=== PATIENT | female | born 1980 | race Caucasian/White ===

== ENCOUNTER 2018-09-01 16:24 | Emergency (ER) | payer OTHER ==
[2018-09-01] MEDS ORDERED: SODIUM CHLORIDE 0.9% 1,000 ML IV ONE ×2 (17:29)
[2018-09-01 18:10] LABS: Basophils # (A) 0.1 k/uL (0-0.2); Basophils % (A) 1 %; Eosinophils # (A) 0.2 k/uL (0-0.7); Eosinophils % (A) 2 %; HCT 40.1 % (34.0-46.0); HGB 13.3 gm/dL (11.4-16.0); Lymphocytes # (A) 3.3 k/uL (1.0-4.8); Lymphocytes % (A) 30 %; MCHC 33.1 g/dL (31.0-37.0); MCV 90.7 fL (80.0-100.0); Mean Platelet Volume 7.1; Monocytes # (A) 0.4 k/uL (0-1.0); Monocytes % (A) 3 %; Neutrophils # (A) 6.8 k/uL (1.3-7.7); Neutrophils % (A) 62 %; Platelet Count 286 k/uL (150-450); RBC 4.43 m/uL (3.80-5.40); RDW 15.3 % (11.5-15.5)
[2018-09-01 18:38] LABS: INR 0.8 (<1.2); Partial Thromboplastin Time 23.5 sec (22.0-30.0); Prothrombin Time 9.4 sec (9.0-12.0)
--- NOTE | 2018-09-01 18:47 | US ---
EXAMINATION TYPE: Transabdominal DATE OF EXAM: 10/08/17 COMPARISON: NONE CLINICAL HISTORY: Pain. Spotting and cramping. EXAM PERFORMED: Transabdominal (TA) EXAM MEASUREMENTS: GESTATIONAL AGE / DATING Physician Established: Not yet established Dates by LMP: (14 weeks/4 days) EDC: 02/26/2019 Dates by First Scan: No previous this is first scan Dates by Current Scan for: (13 weeks/6 days) EDC: 03/03/2019 MATERNAL ANATOMY Uterus: 17.8 x 8.7 x 9.5 cm Post CDS / Adnexa: wnl Presence of free fluid: no Presence of corpus luteal cyst: no Presence of subchorionic bleed: no GESTATION / SURVEY CRL: 7.8cm (13 weeks/6 days) Heart Rate: 151 bpm Rhythm: Normal IUP: Viable IUP Beta HcG (if available): Not available at this time IMPRESSION: Single living intrauterine fetus with gestational age of 13 weeks 6 days according to the crown-rump length. Limited exam due to patient size.
--- NOTE | 2018-09-01 19:00 | ED ---
Female Urogenital HPI - General Chief complaint: Vaginal Bleeding Stated complaint: 14 weeks pg/spotting/cramping Time Seen by Provider: 09/01/18 17:29 Source: patient, RN notes reviewed, old records reviewed Mode of arrival: ambulatory Limitations: no limitations - History of Present Illness Initial comments: Patient is a 37-year-old female, , currently 14 weeks of last menstrual period. She presents emergency Department today with complaints of lower abdominal cramping. She's had some intermittent spotting. Patient states that she has not seen [facility] [employer] [facility] at this time and she has a high risk . Patient has had no nausea or vomiting. Normal urination and bowel habits. Patient states that she has not had any ultrasounds or testing for this . She states that she is a high-risk due to history of strokes as well as her age. Last Menstrual Period: 05/22/18 - Related Data Home Medications Medication Instructions Recorded Confirmed [id number] Acid 1 tab PO DAILY 09/01/18 09/01/18 [-U Capsule (formulary)] Allergies Allergy/AdvReac Type Severity Reaction Status Date / Time amoxicillin Allergy Anaphylaxis Verified 09/01/18 17:44 Penicillins Allergy Anaphylaxis Verified 09/01/18 17:44 Review of Systems ROS Statement: Those systems with pertinent positive or pertinent negative responses have been documented in the HPI. ROS Other: All systems not noted in ROS Statement are negative. Past Medical History Past Medical History: CVA/TIA History of Any Multi-Drug Resistant Organisms: None Reported Past Surgical History: No Surgical Hx Reported Past Psychological History: No Psychological Hx Reported, Anxiety Smoking Status: Current every day smoker Past Alcohol Use History: None Reported Past Drug Use History: None Reported General Exam - General Exam Comments Initial Comments: Alert and oriented 37-year-old male. No significant distress. Limitations: no limitations General appearance: alert, in no apparent distress Head exam: Present: atraumatic, normocephalic, normal inspection Eye exam: Present: normal appearance, PERRL, EOMI. Absent: scleral icterus, conjunctival injection, periorbital swelling ENT exam: Present: normal exam, mucous membranes moist Neck exam: Present: normal inspection. Absent: tenderness, meningismus, lymphadenopathy Respiratory exam: Present: normal lung sounds bilaterally. Absent: respiratory distress, wheezes, rales, rhonchi, stridor Cardiovascular Exam: Present: regular rate, normal rhythm, normal heart sounds. Absent: systolic murmur, diastolic murmur, rubs, gallop, clicks GI/Abdominal exam: Present: soft, normal bowel sounds. Absent: distended, tenderness, guarding, rebound, rigid Extremities exam: Present: normal inspection, full ROM, normal capillary refill. Absent: tenderness, pedal edema, joint swelling, calf tenderness Back exam: Present: normal inspection Neurological exam: Present: alert, oriented X3, CN II-XII intact Psychiatric exam: Present: normal affect, normal mood Skin exam: Present: warm, dry, intact, normal color. Absent: rash Course Vital Signs 09/01/18 17:03 Temperature 98.5 F Pulse Rate 90 Respiratory 18 Rate Blood Pressure 127/76 O2 Sat by Pulse 97 Oximetry Medical Decision Making - Medical Decision Making Patient is a 37-year-old female presents emergency department today with 2. of abdominal cramping and pain. Patient states that she is currently 14 weeks . Labs were reviewed. She is Rh+. Ultrasound shows viable IUP. Pelvic exam did show some minor vaginal discharge. Cultures obtained. Shouldeither cervical or adnexal tenderness. Patient urinalysis shows no sign of infection as well. Patient will be discharged at this time with follow-up with her PCP and [employer] [facility]. Discussed pain is likely related to cervical stretching. - Lab Data Result diagrams: 09/01/18 17:40 09/01/18 17:40 Lab Results 09/01/18 09/01/18 09/01/18 Range/Units 17:40 17:40 17:40 WBC 11.0 H (3.8-10.6) k/uL RBC 4.43 (3.80-5.40) m/uL Hgb 13.3 (11.4-16.0) gm/dL Hct 40.1 (34.0-46.0) % MCV 90.7 (80.0-100.0) fL MCH 30.0 (25.0-35.0) pg MCHC 33.1 (31.0-37.0) g/dL RDW 15.3 (11.5-15.5) % Plt Count 286 (150-450) k/uL Neutrophils % 62 % Lymphocytes % 30 % Monocytes % 3 % Eosinophils % 2 % Basophils % 1 % Neutrophils # 6.8 (1.3-7.7) k/uL Lymphocytes # 3.3 (1.0-4.8) k/uL Monocytes # 0.4 (0-1.0) k/uL Eosinophils # 0.2 (0-0.7) k/uL Basophils # 0.1 (0-0.2) k/uL PT (9.0-12.0) sec INR (<1.2) APTT (22.0-30.0) sec Sodium 138 (137-145) mmol/L Potassium 3.9 (3.5-5.1) mmol/L Chloride 107 (98-107) mmol/L Carbon Dioxide 24 (22-30) mmol/L Anion Gap 7 mmol/L BUN 8 (7-17) mg/dL Creatinine 0.50 L (0.52-1.04) mg/dL Est GFR (CKD-EPI)AfAm >90 (>60 ml/min/1.73 sqM) Est GFR (CKD-EPI)NonAf >90 (>60 ml/min/1.73 sqM) Glucose 96 (74-99) mg/dL Calcium 9.0 (8.4-10.2) mg/dL Total Bilirubin 0.3 (0.2-1.3) mg/dL AST 22 (14-36) U/L ALT 32 (9-52) U/L Alkaline Phosphatase 62 (38-126) U/L Total Protein 6.6 (6.3-8.2) g/dL Albumin 3.4 L (3.5-5.0) g/dL HCG, Quant 93086.5 mIU/mL Urine Color Urine Appearance (Clear) Urine pH (5.0-8.0) Ur Specific Mildred (1.001-1.035) Urine Protein (Negative) Urine Glucose (UA) (Negative) Urine Ketones (Negative) Urine Blood (Negative) Urine Nitrite (Negative) Urine Bilirubin (Negative) Urine Urobilinogen (<2.0) mg/dL Ur Leukocyte Esterase (Negative) Urine RBC (0-5) /hpf Urine WBC (0-5) /hpf Ur Squamous Epith Cells (0-4) /hpf Urine Mucus (None) /hpf Blood Type O Positive Blood Type Recheck [facility] ONLY 09/01/18 09/01/18 Range/Units 17:40 17:40 WBC (3.8-10.6) k/uL RBC (3.80-5.40) m/uL Hgb (11.4-16.0) gm/dL Hct (34.0-46.0) % MCV (80.0-100.0) fL MCH (25.0-35.0) pg MCHC (31.0-37.0) g/dL RDW (11.5-15.5) % Plt Count (150-450) k/uL Neutrophils % % Lymphocytes % % Monocytes % % Eosinophils % % Basophils % % Neutrophils # (1.3-7.7) k/uL Lymphocytes # (1.0-4.8) k/uL Monocytes # (0-1.0) k/uL Eosinophils # (0-0.7) k/uL Basophils # (0-0.2) k/uL PT 9.4 (9.0-12.0) sec INR 0.8 (<1.2) APTT 23.5 (22.0-30.0) sec Sodium (137-145) mmol/L Potassium (3.5-5.1) mmol/L Chloride (98-107) mmol/L Carbon Dioxide (22-30) mmol/L Anion Gap mmol/L BUN (7-17) mg/dL Creatinine (0.52-1.04) mg/dL Est GFR (CKD-EPI)AfAm (>60 ml/min/1.73 sqM) Est GFR (CKD-EPI)NonAf (>60 ml/min/1.73 sqM) Glucose (74-99) mg/dL Calcium (8.4-10.2) mg/dL Total Bilirubin (0.2-1.3) mg/dL AST (14-36) U/L ALT (9-52) U/L Alkaline Phosphatase (38-126) U/L Total Protein (6.3-8.2) g/dL Albumin (3.5-5.0) g/dL HCG, Quant mIU/mL Urine Color Yellow Urine Appearance Cloudy H (Clear) Urine pH 5.5 (5.0-8.0) Ur Specific Mildred 1.022 (1.001-1.035) Urine Protein Negative (Negative) Urine Glucose (UA) Negative (Negative) Urine Ketones Negative (Negative) Urine Blood Negative (Negative) Urine Nitrite Negative (Negative) Urine Bilirubin Negative (Negative) Urine Urobilinogen <2.0 (<2.0) mg/dL Ur Leukocyte Esterase Negative (Negative) Urine RBC 1 (0-5) /hpf Urine WBC 4 (0-5) /hpf Ur Squamous Epith Cells 4 (0-4) /hpf Urine Mucus Occasional H (None) /hpf Blood Type Blood Type Recheck - Radiology Data Radiology results: report reviewed Single living intrauterine fetus with gestational age of 13 weeks and 6 days. Limited exam due to patient's size. Disposition Clinical Impression: Abdominal pain affecting Disposition: HOME SELF-CARE Condition: Good Instructions (If sedation given, give patient instructions): Abdominal Pain in (ED) Additional Instructions: Patient advised to follow-up with primary care physician. Patient should return to the emergency department if any alarming signs or symptoms occur. Is patient prescribed a controlled substance at d/c from ED?: No Referrals: Stephanie Pereira MD [Primary Care Provider] - 1-2 days Time of Disposition: 19:39
[2018-09-01 19:05] LABS: Appearance,Urine Cloudy (Clear); Bilirubin,Urine Negative (Negative); Blood,Urine Negative (Negative); Color,Urine Yellow; Glucose,Urine (UA) Negative (Negative); Ketones,Urine Negative (Negative); Leukocyte Esterase,Urine Negative (Negative); Mucus,Urine Occasional /hpf; Nitrite,Urine Negative (Negative); PH, Urine 5.5 (5.0-8.0); Protein,Urine Negative (Negative); RBC,Urine 1 /hpf (0-5); Specific Gravity,Urine 1.022 (1.001-1.035); Squamous Epithelial Cell,Urine 4 /hpf (0-4); Urobilinogen,Urine <2.0 mg/dL (<2.0); WBC,Urine 4 /hpf (0-5)
[2018-09-01 19:12] LABS: ALT 32 U/L (9-52); AST 22 U/L (14-36); Albumin 3.4 g/dL (3.5-5.0); Alkaline Phosphatase 62 U/L (38-126); Anion Gap 7 mmol/L; Blood Urea Nitrogen 8 mg/dL (7-17); Carbon Dioxide 24 mmol/L (22-30); Chloride 107 mmol/L (98-107); Glucose 96 mg/dL (74-99); Potassium 3.9 mmol/L (3.5-5.1); Sodium 138 mmol/L (137-145); Total Bilirubin 0.3 mg/dL (0.2-1.3); Total Protein 6.6 g/dL (6.3-8.2)
[2018-09-01 19:16] LABS: HCG,Quantitative Serum 24264.5 mIU/mL
[2018-09-01 19:57] VITALS: BP 133/91; PULSE 84; RESP 19; TEMP 98.2
[2018-09-02 14:53] LABS: C. trachomatis,PCR Negative (Neg,Equiv); Chlamydia trachomatis Source Vagina; N. gonorrhoeae,PCR Negative (Neg,Equiv); Neisseria Source Vagina
== END 2018-09-01 19:55 | disposition home or self-care (01) ==
LOC: EC 16:24
DX: O26.891 Other specified pregnancy related conditions, first trimester (principal); R10.9 Unspecified abdominal pain; O99.331 Smoking (tobacco) complicating pregnancy, first trimester; F17.200 Nicotine dependence, unspecified, uncomplicated; Z3A.13 13 weeks gestation of pregnancy; Z86.73 Personal history of transient ischemic attack (TIA), and cerebral infarction without residual deficits; Z88.0 Allergy status to penicillin; Z53.29 Procedure and treatment not carried out because of patient's decision for other reasons
CPT/HCPCS: 36415; 76801; 80053; 81001; 84702; 85025; 85610; 85730; 86900; 86901; 87070; 87205; 87491; 87591; 87808; 99284

== ENCOUNTER → 2019-01-12 | Outpatient (CLI) | payer OTHER ==
--- NOTE | 2019-01-13 09:24 | US ---
EXAMINATION TYPE: US OB >= 14 wk fetus DATE OF EXAM: 01/12/2019 COMPARISON: None CLINICAL HISTORY: Z34.90 Normal Encounter for Supervision of normal TECHNIQUE: Transabdominal (TA) GESTATIONAL AGE / DATING Physician Established: (33 weeks/4 days) EDC: 02/26/19 Dates by LMP: ( 33weeks/4days) EDC: 02/26/19 Dates by First Scan: (32 weeks/6 days) EDC: 03/03/19 Dates by Current Scan: (33 weeks/6 days) EDC: 02/24/19 SURVEY IUP: Single PLACENTA: Fundal PREVIA: No Previa MANJINDER: 12.6 cm Normal CERVICAL LENGTH (transabdominal: norm > 3.0cm): 3.0 cm BIOMETRY PRESENTATION: Vertex LIE: Longitudinal BPD: 8.3 cm 33 weeks / 3 days HC: 31.1 cm 34 weeks / 6 days AC: 28.8 cm 32 weeks / 6 days FL: 6.7 cm 34 weeks / 2 days ESTIMATED WEIGHT IN GRAMS: 2208 grams ESTIMATED WEIGHT IN LBS/OZ: 4 lbs. 14 oz. WEIGHT PERCENTAGE BASED ON ESTABLISHED DATES: 61.1% HC/AC: 1.08 Normal FL/AC: 23.1 Normal HEART RATE: 141 bpm RHYTHM: Normal MATERNAL WALL MEASUREMENT: 3.9 cm from skin to anterior uterine wall (if exam limited due to body hab itus). IMPRESSION: 1. Cervical length is lower limits of normal measuring 3.0 cm. 2. Single live intrauterine with a current heart rate of 141 bpm and calculated age of 33 w eeks and 6 days with estimated date of delivery of 02/24/2019, overall concordant with menstrual age.
== END | disposition home or self-care (01) ==
LOC: RADUSWWP 16:17
PROVIDERS: ATTEND Obstetrics & Gynecology
DX: O09.513 Supervision of elderly primigravida, third trimester (principal); Z3A.33 33 weeks gestation of pregnancy
CPT/HCPCS: 76805

== ENCOUNTER → 2019-02-05 | Outpatient (CLI) | payer OTHER ==
--- NOTE | 2019-02-05 08:47 | US ---
EXAMINATION TYPE: US OB >= 14 wk fetus DATE OF EXAM: 02/05/2019 COMPARISON: None CLINICAL HISTORY: Z34.90 Supervision of other normal . Growth being induced next week. TECHNIQUE: Transabdominal (TA) GESTATIONAL AGE / DATING Physician Established: (37 weeks/0 days) EDC: 02/26/2019 Dates by LMP: (37 weeks/0 days) EDC: 02/26/2019 Dates by First Scan: (13 weeks/6 days) EDC: 03/03/2019 Dates by Current Scan: (35 weeks/2 days) EDC: 03/10/2019 SURVEY IUP: Single PLACENTA: Fundal PREVIA: No Previa MANJINDER: 9.8 cm Normal CERVICAL LENGTH (transabdominal: norm > 3.0cm): Not well visualized due to maternal age and body habi tus. cm BIOMETRY PRESENTATION: Vertex LIE: Transverse with head maternal Left BPD: 8.7 cm 35 weeks / 1 days HC: 32.6 cm 37 weeks / 0 days AC: 29.0 cm 33 weeks / 1 days FL: 6.9 cm 35 weeks / 3 days ESTIMATED WEIGHT IN GRAMS: 2399 grams ESTIMATED WEIGHT IN LBS/OZ: 5 lbs. 5 oz. WEIGHT PERCENTAGE BASED ON ESTABLISHED DATES: 5% HC/AC: 1.12cm Normal FL/AC: 24% Normal HEART RATE: 136 bpm RHYTHM: Normal MATERNAL WALL MEASUREMENT: 4.7 cm from skin to anterior uterine wall (if exam limited due to body hab itus). IMPRESSION: Single live intrauterine with a sonographic age of 35 weeks and 2 days and estimated date o f delivery of 03/10/2019. Dates are discordant with menstrual age. Weight based on established dates of 5%. Amniotic fluid index of 9.8.
== END | disposition home or self-care (01) ==
LOC: RADUSWWP 07:48
PROVIDERS: ATTEND Obstetrics & Gynecology
DX: Z34.93 Encounter for supervision of normal pregnancy, unspecified, third trimester (principal)
CPT/HCPCS: 76805

== ENCOUNTER → 2020-08-24 | Outpatient (CLI) | payer OTHER ==
[2020-08-24 11:36] LABS: D-Dimer 0.37 mg/L FEU (<0.60); INR 0.9 (<1.2); Prothrombin Time 10.1 sec (9.0-12.0)
[2020-08-24 16:10] LABS: Basophils # (A) 0.06 X 10*3/uL (0.00-0.10); Basophils % (A) 0.7 %; Eosinophils # (A) 0.31 X 10*3/uL (0.04-0.35); Eosinophils % (A) 3.5 %; HCT 44.5 % (37.2-46.3); HGB 13.7 g/dL (12.0-15.0); Lymphocytes # (A) 2.42 X 10*3/uL (0.90-5.00); Lymphocytes % (A) 27.4 %; MCHC 30.8 g/dL (32.0-37.0); MCV 90.8 fL (80.0-97.0); Mean Platelet Volume 9.9 fL (9.5-12.2); Monocytes # (A) 0.36 X 10*3/uL (0.20-1.00); Monocytes % (A) 4.1 %; Neutrophils # (A) 5.66 X 10*3/uL (1.80-7.70); Platelet Count 337 X 10*3/uL (140-440); WBC 8.84 X 10*3/uL (4.50-10.00)
[2020-08-24 16:44] LABS: African American GFR (CKD) 128.3 (60.0-200.0); Albumin 4.4 g/dL (3.80-4.90); Albumin/Globulin Ratio 1.76 (1.60-3.17); Anion Gap 5.6 mmol/L (4.00-12.00); BUN/Creat Ratio 15.71 Ratio (12.00-20.00); Carbon Dioxide 23.4 mmol/L (21.6-31.8); Chol/HDL Ratio 4.74; Globulin 2.5 g/dL (1.6-3.3); LDL Cholesterol,Calculated 139.8 mg/dL (0.0-131.0); Non-African American GFR(CKD) 110.7 (60.0-200.0); Potassium 4.5 mmol/L (3.5-5.5); Total Bilirubin 0.5 mg/dL (0.3-1.2); Total Protein 6.9 g/dL (6.2-8.2); VLDL Calculation 21.2 mg/dL (5.00-40.00)
[2020-08-24 18:46] LABS: Cardiolipin Ab IgG Interp NEGATIVE (NEGATIVE); Cardiolipin Ab IgM Interp NEGATIVE (NEGATIVE); Cardiolipin IgA Antibody 1.7 U/mL; Cardiolipin IgM Antibody 0.3 U/mL
[2020-08-25 10:26] LABS: Anti-Thrombin III Antigen 103 % (80 - 120); Protein S Antigen 98 % (50 - 140)
[2020-08-25 13:47] LABS: APTT 44 Sec(s) (<43); APTT 1:1 Mix 37 Sec(s) (<43); Dilute Russell Viper Venom 39 Sec(s) (<44)
[2020-08-26 10:41] LABS: Anti-Thrombin III Activity 92 % (79-109); Protein C (Activity) 107 % (71-138)
[2020-08-26 10:55] LABS: Protein C Antigen 103 % (72-160)
== END | disposition home or self-care (01) ==
LOC: LABWHC1 09:55
PROVIDERS: ATTEND Nurse Practitioner Acute Care
DX: E78.5 Hyperlipidemia, unspecified (principal)
CPT/HCPCS: 36415; 80053; 80061; 81240; 81291; 82306; 82607; 83090; 84207; 84439; 84443; 84481; 85025; 85300; 85301; 85302; 85303; 85305; 85306; 85379; 85384; 85610; 85613; 85730; 86147

== ENCOUNTER → 2020-11-18 | Outpatient (CLI) | payer OTHER ==
--- NOTE | 2020-11-18 09:15 | US ---
EXAMINATION TYPE: US renal artery duplex complet DATE OF EXAM: 11/18/2020 COMPARISON: NONE CLINICAL HISTORY: I10 Hypertension. MEASUREMENTS: RENAL SIZE: Rt Kidney: 10.2 x 4.7 x 4.3cm Lt Kidney: 11.9 x 4.6 x 5.4cm RESISTANCE INDEX Right: 0.60 Left: 0.60 RA/AO RATIO (< 3.5 ) Right: 2.0 Left: 2.6 RA VELOCITY ( < 180 cm/s) Right: 157cm/s Left: 207 cm/s Patient of large body habitus with extensive overlying bowel gas, technically difficult somewhat limi cass study. Slight elevation of left renal artery without abnormal ratio. IMPRESSION: Limited examination without definite evidence for renal artery stenosis at this time.
== END | disposition home or self-care (01) ==
LOC: RADUSWWP 07:40
PROVIDERS: ATTEND Family Medicine
DX: I10 Essential (primary) hypertension (principal)
CPT/HCPCS: 93975